=== PATIENT | male | born 1990 | race Hispanic/Latino ===

== ENCOUNTER 2020-11-08 23:45 | Emergency (ER) | payer SELFPAY ==
[2020-11-08 23:48] VITALS: BP 167/105; PULSE 95; RESP 18; TEMP 36.5; O2SAT 98
[2020-11-09 01:08] VITALS: BP 159/105; PULSE 99; RESP 12; RESP 18; O2SAT 97; O2SAT 98
[2020-11-09] MEDS: COLCHICINE 0.6 MG TABLET 1.2 MG PO (01:20)
[2020-11-09] MEDS: KETOROLAC (*BKC) 60 MG/2 ML VIAL IM (01:21)
--- NOTE | 2020-11-09 01:38 | ED.GENADULT ---
HPI - General Adult General Chief complaint: Unspecified <Karel Castanon PA-C - Last Filed: 11/09/20 01:46> Stated complaint: gout flare <Karel Castanon PA-C - Last Filed: 11/09/20 01:46> Time Seen by Provider: 11/09/20 00:38 <Karel Castanon PA-C - Last Filed: 11/09/20 01:46> Source: patient, family and RN notes reviewed <Karel Castanon PA-C - Last Filed: 11/09/20 01:46> Mode of arrival: ambulatory <Karel Castanon PA-C - Last Filed: 11/09/20 01:46> Limitations: no limitations <Karel Castanon PA-C - Last Filed: 11/09/20 01:46> History of Present Illness HPI narrative: Patient is a 30-year-old male who presents to emergency department for evaluation of right ankle pain that began over the last day patient notes the pain is consistent with prior gout flare patient notes aching pain worse with even light touch or activity patient localizes the pain to the right ankle patient denies any fever chill injury or trauma has tried [id number] medications with minimal improvement 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 patient otherwise denies other complaints or concerns <Karel Castanon PA-C - Last Filed: 11/09/20 01:46> Related Data Home medications: Home Medications Medication Instructions Recorded Confirmed allopurinol 300 mg PO DAILY 11/08/20 <Karel Castanon PA-C - Last Filed: 11/09/20 01:46> Allergies/adverse reactions: Allergies Allergy/AdvReac Type Severity Reaction Status Date / Time No Known Allergies Allergy Verified 11/08/20 23:51 <Karel Castanon PA-C - Last Filed: 11/09/20 01:46> Review of Systems Review of Systems: All systems reviewed & are unremarkable except as noted in HPI and below <Karel Castanon PA-C - Last Filed: 11/09/20 01:46> PMFSH Past Medical History Medical History: Medical History (Updated 11/09/20 @ 01:44 by Karel Castanno PA-C) Gout <FLOR Adams Last Filed: 11/09/20 01:46> Social History Social History: Social History Gender identity (if verbalized by the patient): Male Sexual Orientation (if Verbalized by the Patient): Straight or Heterosexual <Karel Castanon PA-C - Last Filed: 11/09/20 01:46> Exam Narrative: Exam Narrative: GENERAL: Well-appearing, well-nourished, and in no acute distress. HEAD: Normocephalic, atraumatic. EYES: PERRLA and EOMI. ENT: Nares clear, no rhinorrhea or epistaxis. Mucous membranes moist. CHEST: Clear to auscultation. No respiratory distress. No wheezes rales or rhonchi HEART: Regular rate and rhythm. No murmur heard. EXTREMITIES: Tenderness throughout the right ankle joint no erythema or fluctuance 1+ edema to the bilateral feet SKIN: Warm, dry, no rash. NEURO: No focal deficits. Alert and oriented x3. Neurovascularly intact. Capillary refill less than 2 seconds PSYCH: Normal mood and affect. <Karel Castanon PA-C - Last Filed: 11/09/20 01:46> Course Course Emergency Course: Patient in the room no distress aware of case findings treatment plan and diagnosis agreeing to follow-up as instructed or to return if symptoms worsen or concerns <Karel Castanon PA-C - Last Filed: 11/09/20 01:46> Vital Signs Vital signs: Vital Signs Temperature 97.7 F 11/08/20 23:48 Pulse Rate 95 11/08/20 23:48 Respiratory Rate 18 11/08/20 23:48 Blood Pressure 167/105 H 11/08/20 23:48 Pulse Oximetry 98 11/08/20 23:48 Temperature 97.7 F 11/08/20 23:48 Pulse Rate 99 11/09/20 01:08 Respiratory Rate 12 11/09/20 01:08 Blood Pressure 159/105 H 11/09/20 01:08 Pulse Oximetry 97 11/09/20 01:08 <Karel Castanon PA-C - Last Filed: 11/09/20 01:46> Vital Signs Temperature 97.7 F 11/08/20 23:48 Pulse Rate 95 11/08/20 23:48 Respiratory Rate 18 11/08/20 23:48 Blood Pressure 167/105 H 11/08/20 23:48 Pulse Oximetr
== END 2020-11-09 01:55 | disposition home or self-care (01) ==
PROVIDERS: Emergency Provider General Practice
DX: M25.571 Pain in right ankle and joints of right foot (principal); M10.9 Gout, unspecified
CPT/HCPCS: 96372; 99283; A9270; J1885